=== PATIENT | female | born 1965 | race Two or more races ===

== ENCOUNTER 2024-12-02 00:01 | Emergency (ER) | payer OTHER ==
[~2024-12-02] VITALS: Ht 157.5 cm; Wt 73.0 kg
[2024-12-02 00:20] VITALS: O2SAT 99
[2024-12-02] MEDS: MAGNESIUM/ALUMINUM HYDROXIDE/SIMETHICONE 30ML UDC PO ONE (01:55)
[2024-12-02] MEDS: ONDANSETRON 4MG ODT PO ONE (01:55)
[2024-12-02] MEDS: PANTOPRAZOLE 40MG DR TABLET PO ONE (01:55)
[2024-12-02] MEDS: MORPHINE SULFATE 4 MG/ML INJ (FOR IV/IM USE) IV ONE (02:29)
[2024-12-02 02:32] LABS: ETHANOL BLOOD 231 mg/dL (<10)
[2024-12-02 02:34] LABS: ALANINE AMINOTRANSFERASE 23 IU/L (10-49); ALBUMIN 3.8 g/dL (3.2-4.8); ASPARTATE AMINOTRANSFERASE 32 IU/L (<34); BILIRUBIN DIRECT < 0.1 mg/dL (<=3.0); BILIRUBIN TOTAL 0.2 mg/dL (0.1-1.0); PROTEIN TOTAL 6.2 g/dL (6.0-8.3)
[2024-12-02 02:45] LABS: CHLORIDE 104 mEq/L (98-107); POTASSIUM 4.5 mEq/L (3.5-5.1); SODIUM 138 mEq/L (136-145)
[2024-12-02 02:46] LABS: CALCIUM 8.7 mg/dL (8.7-10.4); CARBON DIOXIDE 25 mEq/L (21-32)
[2024-12-02 02:51] LABS: CREATININE 0.9 mg/dL (0.6-1.0); GLUCOSE 123 mg/dL (70-105); UREA NITROGEN BLOOD 9 mg/dL (9-23)
[2024-12-02 02:58] LABS: BASOPHILS % 0.7 % (0.0-2.0); DIFFERENTIAL COMMENT 0; EOSINOPHILS % 4.8 % (0.0-5.0); HEMATOCRIT. 31.2 % (36.0-48.0); LYMPHOCYTES % 47.9 % (20.0-50.0); MEAN CORPUSCULAR HEMOGLOBIN 25.1 pg (28.0-32.0); MEAN CORPUSCULAR HGB CONC 32.1 g/dL (31.0-37.0); MEAN CORPUSCULAR VOLUME 78.1 fL (81.0-99.0); MEAN PLATELET VOLUME 10.3 fl (7.4-10.4); MONOCYTES % 7.2 % (2.0-8.0); NEUTROPHILS % 39.4 % (40.0-76.0); PLATELET 192 x1000/uL (130-400); RED CELL DISTRIBUTION WIDTH 17.1 % (11.6-14.6); WHITE BLOOD COUNT 5.8 x1000/uL (4.5-11.0)
[2024-12-02 03:27] LABS: TROPONIN I HIGH SENSITIVITY < 4 ng/L (3.0-34)
[2024-12-02] MEDS ORDERED: FAMO40TA70 MT (05:38)
[2024-12-02] MEDS ORDERED: MAG-55 MT (05:38)
[2024-12-02] MEDS: SODIUM CHLORIDE 0.9% 500 ML IV ONE (05:48)
[2024-12-02 07:02] VITALS: BP 96/53; PULSE 65; RESP 15; TEMP 36.4; O2SAT 99
== END 2024-12-02 07:00 | disposition home or self-care (01) ==
LOC: ER 00:01
DX: K29.20 Alcoholic gastritis without bleeding (principal); F10.129 Alcohol abuse with intoxication, unspecified; R11.2 Nausea with vomiting, unspecified; R51.9 Headache, unspecified; R07.9 Chest pain, unspecified; Z79.899 Other long term (current) drug therapy; Y90.7 Blood alcohol level of 200-239 mg/100 ml
CPT/HCPCS: 80076; 80048; 80320; 83880; 83690; 85025; 84484; 36415; 71045; 93005; 96361; 96374; 99285; Q0162; J2270; J7040; Z7610 ×3; G0480